=== PATIENT | male | born 1980 | race Caucasian/White ===

== ENCOUNTER → 2021-11-23 | Outpatient (CLI) | payer BC ==
--- NOTE | 2021-11-23 16:52 | CONS ---
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 [facility] due to concerns of sleep apnea. The patient has been told by his that he is snoring very loud and he quits breathing and he has been observed to have apneas while asleep. He goes to bed typically around 10 p.m., wakes up 6:30 am in the morning and he wakes up tired to an alarm. On weekends, he goes to bed around the same time around 10 p.m., wakes up 7:00 am in the morning. He is averaging around 7-8 hours of sleep. He takes a few minutes to fall asleep. His sleep quality is suboptimal and the patient feels unrested and unrefreshed when he wakes up in the morning. He is able to drive long distances, knowing that the patient works in [place], [place]. He drives all the way to [place] and other locations and he does not fall asleep behind the wheel and has never been veered off the road because of feeling drowsy or sleepy. No history of any motor vehicle accident because of feeling sleepy. He sleeps on his side. He may be able to take a 20 minute nap if given the opportunity to do so somewhere between 3 and 5:00 pm. His weight has remained stable, probably gained around 10 pounds over the past 5 years. No other complaints. No sleep paralysis. No hallucinations. No cataplexy. No sleepwalking. No sleeptalking. No restlessness in lower extremities. No anxiety. No depression. No history of any panic attacks. PAST MEDICAL HISTORY: Negative. SURGICAL HISTORY: Includes surgery for an ACL. DRUG ALLERGIES: Not known. MEDICATIONS: None. SOCIAL HISTORY: Nonsmoker. No history of alcohol. No history of IV drugs. FAMILY HISTORY: Mother had rheumatoid arthritis. Father is healthy. REVIEW OF SYSTEMS: Fourteen-point review of system was done. Positive findings are mentioned in history of present illness. PHYSICAL EXAMINATION: BP is 132/82, pulse 72, respirations 16, temperature 98.1. Saturation 94% on room air. Height is 6 feet 1 inches, weight is 240, BMI 31.2. Neck size is 17.5 inches. GENERAL appearance: Calm, comfortable. Head is atraumatic, normocephalic. NECK: Supple. No JVD. No goiter or neck masses. Mallampati class 4. Slight overbite. LUNGS: Clear to auscultation. HEART: Heart sounds are regular rate and rhythm. Normal S1, S2. No S3, no murmurs. ABDOMEN: Soft, nontender. No organomegaly. EXTREMITIES: No edema. No cyanosis or clubbing. NEUROLOGIC: Awake and alert. There is no focal neurological deficits. IMPRESSION: 1. Chronic hypersomnia, [place] score of 12. High likelihood for obstructive sleep apnea. 2. Loud snoring and witnessed apneas per history. 3. Chronic fatigue and tiredness. PLAN: 1. Encourage weight loss. 2. Optimize sleep hygiene measures. 3. Avoid driving especially when feeling drowsy or sleepy. 4. Proceed with a home sleep study to evaluate this patient for obstructive sleep apnea. Clinical suspicion for CAPRICE is quite high. We will continue to follow and make further recommendations based on the results of the home sleep study. MMALICIAL / ELIJAHN: [id number] /
== END ==
LOC: SLEEP 14:49
PROVIDERS: ATTEND Internal Medicine Critical Care Medicine
DX: G47.10 Hypersomnia, unspecified (principal); R06.83 Snoring
CPT/HCPCS: 99211